=== PATIENT | male | born 1970 | race Caucasian/White ===

== ENCOUNTER → 2017-08-19 | Day surgery (SDC) | payer OTHER ==
[~2017-08-19] VITALS: Ht 172.7 cm; Wt 108.9 kg
[~2017-08-19] MED LIST: AMLODIPINE BESYL5 M1 PO; AMLODIPINE10 MG PO; BACTRIM DS 8001 TAB PO; GOOD SENSE ASP325 MG PO; LISINOPRIL-HCT1 EACH PO; PERCOCET 325 MG1 TA2 PO; PHENERGAN25 MG PR; ZOFRAN4 M1 SL
--- NOTE | 2017-08-19 13:01 | Operative Report ---
Operative/Inv Procedure Report Surgery Date: 08/19/17 Name of Procedure: Excision 7 cm soft tissue mass neck deep to fascia Pre-Operative Diagnosis: Soft tissue mass left necksymptomatic Post-Operative Diagnosis: Same Estimated Blood Loss: scant Surgeon/New Grad Rn: Kole HARRIS,Benjamin Cortez Anesthesia: laryngeal mask airway Operative/Procedure Note Note: H was counseled extensively regards to the procedure the alternatives the risks and expected outcomes as relates to request his request for surgical intervention to treat symptomatically soft tissue mass of the posterior left neck. We talked about risks including infection bleeding pain numbness and injury to surrounding structures visible scarring possibly unsightly or symptomatic in a chronic open wound. Once agreed informed consent was signed producing to the operative placed supine on the table Venodyne boots are placed and laryngeal mask anesthesia was established. Intravenous antibiotics were given. The left head and neck were prepped and draped in usual sterile fashion. Transverse incision was made overlying the mass and deepened through the subcutaneous tissue. The fascia was then divided and the soft tissue mass was identified and freed from its attachments both bluntly and with judicious electrocautery. The wound was hemostatic. Multiple basting sutures were used to decrease the space and was closed in approximately 5 layers of absorbable suture.
== END ==
LOC: STS 01:54
DX: D21.0 Benign neoplasm of connective and other soft tissue of head, face and neck (principal); I10 Essential (primary) hypertension
CPT/HCPCS: 36415; J0690; J2250